=== PATIENT | female | born 1980 | race Caucasian/White ===

== ENCOUNTER 2017-04-04 06:32 | Emergency (ER) | payer MEDICAID ==
[2017-04-04 06:40] VITALS: BP 122/94; PULSE 106; RESP 16; TEMP 99.5; O2SAT 94
--- NOTE | 2017-04-04 07:00 | EDPHY ---
H & P Stated Complaint: ST, congestion, runny nose, swollen tongue 24hours HPI/ROS: HPI CHIEF COMPLAINT: Sore throat, sinus congestion HISTORY OF PRESENT ILLNESS: This patient is a very pleasant 37-year-old female , presents emergency room with sinus congestion. Patient reports that she has been sick for 24 hours. She has sinus pain anterior maxillary, nasal congestion , sore throat. No fever. Denies any headache or stiff neck. Denies meningeal signs. Past Medical History: No significant medical history except for ankylosing spondylitis Past Surgical History: Denies recent surgery Social History: Denies daily use of drugs alcohol tobacco products Family History: Noncontributory ROS REVIEW OF SYSTEMS: A comprehensive 10 point review of systems is otherwise negative aside from elements mentioned in the history of present illness. Exam Constitutional appears well nontoxic triage nursing summary reviewed, vital signs reviewed, awake/alert. Eyes normal conjunctivae and sclera, EOMI, PERRLA. HENT tender palpation over the maxillary sinuses. normal inspection, atraumatic , moist mucus membranes, no epistaxis, neck supple/ no meningismus, no raccoon eyes. Respiratory clear to auscultation bilaterally, normal breath sounds, no respiratory distress, no wheezing. Cardiovascular rate normal, regular rhythm, no murmur, no edema, distal pulses normal. Gastrointestinal soft, non-tender, no rebound, no guarding, normal bowel sounds, no distension, no pulsatile mass. Genitourinary no CVA tenderness. Musculoskeletal no midline vertebral tenderness, full range of motion, no calf swelling, no tenderness of extremities, no meningismus, good pulses, neurovascularly intact. Skin pink, warm, & dry, no rash, skin atraumatic. Neurologic awake, alert and oriented x 3, AAOx3, moves all 4 extremities equally, motor intact, sensory intact, CN II-XII intact, normal cerebellar, normal vision, normal speech. Psychiatric normal mood/affect. Heme/Lymph/Immune no lymphadenopathy. Differential Diagnosis: Includes but is not limited to in a particular order, viral syndrome, acute sinusitis, upper respiratory tract infection, strep pharyngitis. Medical Decision Making: Rapid strep. Negative. This patient well nontoxic. Clinically I do feel that she acute sinusitis. Will treat with azithromycin, ibuprofen, Mucinex. Understands drink lots of fluids. Understands return cautions. She understands return emergency room if she develops worsening pain , high fever, vomiting questions or concerns. Source: Patient - Personal History LMP (Females 10-55): 15-21 Days Ago Current Tetanus/Diphtheria Vaccine: Unsure Current Tetanus Diphtheria and Acellular Pertussis (TDAP): Unsure - Medical/Surgical History Hx Asthma: Yes Hx Chronic Respiratory Disease: No Hx Diabetes: No Hx Cardiac Disease: No Hx Renal Disease: No Hx Cirrhosis: No Hx Alcoholism: No Hx HIV/AIDS: No Hx Splenectomy or Spleen Trauma: No Other PMH: akylosing spondylitis, bresast implants removed, tonsillectomy. hypothyroid, asthma, PNA, bronchitis, cholitis, celiac dz, GERD. - Social History Smoking Status: Never smoked Constitutional: Initial Vital Signs Temperature (C) 37.5 C 04/04/17 06:35 Heart Rate 106 H 04/04/17 06:35 Respiratory Rate 16 04/04/17 06:35 Blood Pressure 122/94 H 04/04/17 06:35 O2 Sat (%) 94 04/04/17 06:35 O2 Delivery Mode Room Air Allergies/Adverse Reactions: ciprofloxacin [From Cipro] Allergy (Intermediate, Verified 04/04/17 06:41) Rash doxycycline Allergy (Intermediate, Verified 04/04/17 06:41) Rash gluten Allergy (Intermediate, Verified 04/04/17 06:41) Abdominal Cramping latex Allergy (Intermediate, Verified 04/04/17 06:41) Rash metoclopramide [From Reglan] Allergy (Intermediate, Verified 04/04/17 06:41) Anxiety sulfamethoxazole [From Bactrim] Allergy (Intermediate, Verified 04/04/17 06:41) Rash trimethoprim [From Bactrim] Allergy (Intermediate, Verified 04/04/17 06:41) Rash Home Medications: Medication Instructions Recorded AZITHROMYCIN [Z-PACK] 250 mg PO DAILY #6 tab 04/04/17 Ibuprofen [Motrin (*)] 800 mg PO Q6-8PRN #10 tab 04/04/17 Nature-Throid 04/04/17 Topamax 04/04/17 guaiFENesin [Guaifenesin ER] 600 mg PO BID #14 tab.er.12h 04/04/17 Medical Decision Making - Data Points Laboratory Results: 04/04/17 04/04/17 Unknown 06:42 Group A Strep Screen NEGATIVE (NEGATIVE) Group A Strep DNA Pending Departure - Departure Disposition: Home, Routine, Self-Care Clinical Impression: Sinusitis Qualifiers: Sinusitis location: frontal Chronicity: acute Recurrence: non-recurrent Qualified Code(s): J01.10 - Acute frontal sinusitis, unspecified Instructions: Sinusitis (ED) Additional Instructions: 1. Make sure to drink lots of fluids stay well-hydrated. 2. Take antibiotics as prescribed. 3. Return if you feel worse includes high fever, vomiting or any complaints. Referrals: NONE *PRIMARY CARE P,. [Primary Care Provider] - As per Instructions Prescriptions: AZITHROMYCIN [Z-PACK] 250 mg PO DAILY #6 tab guaiFENesin [Guaifenesin ER] 600 mg PO BID #14 tab.er.12h Ibuprofen [Motrin (*)] 800 mg PO Q6-8PRN #10 tab
== END 2017-04-04 07:16 | disposition home or self-care (01) ==
DX: J01.10 Acute frontal sinusitis, unspecified (principal); J45.909 Unspecified asthma, uncomplicated; Z91.040 Latex allergy status

== ENCOUNTER 2017-04-06 19:59 | Emergency (ER) | payer MEDICAID ==
[2017-04-06 20:04] VITALS: BP 135/95; PULSE 113; RESP 18; TEMP 99.3; O2SAT 97
--- NOTE | 2017-04-06 20:14 | EDPHY ---
H & P Time Seen by Provider: 04/06/17 20:07 HPI/ROS: HPI Cough. 37-year-old female by private vehicle. This patient was seen in our emergency department 2 days ago. She has had nasal congestion, sinus pressure, sore throat and cough since Wednesday. She was diagnosed with sinusitis and bronchitis when she was seen in the emergency department a couple of days ago. She was prescribed azithromycin and guaifenesin. She returns to the emergency department complaining of a continued cough and more pain in her throat when she coughs secondary to rawness from the coughing. She describes the cough is dry and hacking and nonproductive. She has associated chest tightness with it. She also reports subjective fevers. ROS: Constitutional: As above, no chills. No weakness. Eyes: No discharge. No changes in vision. ENT: As above Respiratory: As above. Cardiac: No chest pain, no palpitations. Gastrointestinal: No abdominal pain, no vomiting, no diarrhea. Genitourinary: No hematuria. No dysuria or increased frequency with urination. Musculoskeletal: No back pain. No neck pain. No myalgias or arthralgias. Skin: No rashes. Neurological: No headache. No focal weakness or altered sensation. Past medical history: Ankylosing spondylitis, breast implants removed, tonsillectomy, hypothyroidism, asthma, bronchitis, celiac disease, colitis. Social history: Nonsmoker. No alcohol. With a friend. Physical Exam: General Appearance: Alert, intermittent dry hacking cough. This patient is responding to questions appropriately and in full sentences. This patient appears well-hydrated and well-nourished. Eyes: Pupils equal and round no pallor or injection. No lid edema, erythema or injection. ENT, Mouth: Mucous membranes are moist. The pharyngeal tissues are unremarkable. No edema or swelling. No asymmetry suggestive of abscess. No erythema or exudates. Respiratory: There are no retractions, lungs are clear to auscultation with good air movement bilaterally. No tachypnea. Cardiovascular: Regular rate and rhythm. Mild tachycardia. No murmur appreciated. Neurological: Motor sensory function is grossly intact. Cranial nerves are normal. Gait is normal. Skin: Warm and dry, no rashes. Musculoskeletal: Neck is supple and nontender. Extremities are symmetrical. All joints range without pain or impingement. Psychiatric: No agitation. No depression. Database: EKG: Imaging: Chest x-ray PA and lateral; the cardiac mediastinal silhouette is unremarkable. Mild bronchitis. No evidence of infiltrate or pneumothorax. No other acute cardiopulmonary disease process noted. Interpreted by me. Procedures: Emergency department course: Vital signs reviewed. Patient was given 2 [place] tablets, 600 mg of ibuprofen, 10 mg of oral Decadron, Tessalon Perle and a DuoNeb. 9:14 p.m., patient re-evaluated. Resting comfortably at this time. She states that she feels better. Less cough. No chest tightness. She feels comfortable going home and I feel she is safe for discharge. Plan will be to send her home with a albuterol inhaler as well as a prescription for Tessalon Perle and some Hycodan cough syrup. She feels comfortable with this plan. Return to emergency department precautions reviewed with her. All of her questions were answered. She was discharged in good condition. Differential Diagnosis: The differential diagnosis on this patient includes but is not limited to viral upper respiratory infection, bronchitis. Reactive airway disease, asthma, pneumonia unlikely. This represents a partial list of diagnoses considered. These considerations are based on history, physical exam, past history, reassessment and diagnostic testing. Smoking Status: Never smoked Constitutional: Initial Vital Signs Temperature (C) 37.4 C 04/06/17 20:02 Heart Rate 113 H 04/06/17 20:02 Respiratory Rate 18 04/06/17 20:02 Blood Pressure 135/95 H 04/06/17 20:02 O2 Sat (%) 97 04/06/17 20:02 O2 Delivery Mode Room Air Allergies/Adverse Reactions: ciprofloxacin [From Cipro] Allergy (Intermediate, Verified 04/06/17 20:05) Rash doxycycline Allergy (Intermediate, Verified 04/04/17 06:41) Rash gluten Allergy (Intermediate, Verified 04/06/17 20:05) Abdominal Cramping latex Allergy (Intermediate, Verified 04/06/17 20:05) Rash metoclopramide [From Reglan] Allergy (Intermediate, Verified 04/06/17 20:05) Anxiety sulfamethoxazole [From Bactrim] Allergy (Intermediate, Verified 04/06/17 20:05) Rash trimethoprim [From Bactrim] Allergy (Intermediate, Verified 04/06/17 20:05) Rash Home Medications: Medication Instructions Recorded AZITHROMYCIN [Z-PACK] 250 mg PO DAILY #6 tab 04/04/17 Ibuprofen [Motrin (*)] 800 mg PO Q6-8PRN #10 tab 04/04/17 Nature-Throid 04/04/17 Topamax 04/04/17 guaiFENesin [Guaifenesin ER] 600 mg PO BID #14 tab.er.12h 04/04/17 Benzonatate [Tessalon Pearles] 100 mg PO TID #12 cap 04/06/17 Medical Decision Making - Data Points Medications Given: Discontinued Medications Hydrocodone Bitart/Acetaminophen ([place] 5/325) 2 tab PO EDNOW ONE Stop: 04/06/17 20:27 Last Admin: 04/06/17 20:40 Dose: 2 tab Albuterol/Ipratropium (Duoneb) 3 ml IH EDNOW ONE Stop: 04/06/17 20:27 Last Admin: 04/06/17 20:39 Dose: 3 ml Benzonatate (Tessalon Pearles) 200 mg PO EDNOW ONE Stop: 04/06/17 20:27 Last Admin: 04/06/17 20:39 Dose: 200 mg Dexamethasone (Decadron) 12 mg PO EDNOW ONE Stop: 04/06/17 20:28 Last Admin: 04/06/17 20:39 Dose: 12 mg Ibuprofen (Motrin) 600 mg PO EDNOW ONE Stop: 04/06/17 20:28 Last Admin: 04/06/17 20:40 Dose: Not Given Departure - Departure Disposition: Home, Routine, Self-Care Clinical Impression: Bronchitis Condition: Good Instructions: Acute Bronchitis (ED) Additional Instructions: Read and follow provided instructions. Follow-up with your primary care physician in 1-2 days for re-evaluation as discussed. Ibuprofen dosin mg every 6 hours with meals for the next 3 days only. Albuterol meter dose inhaler: 1-2 puffs every 2-4 hours as needed for cough and shortness of breath. Return to the emergency department for worsening cough, difficulty breathing or other serious concerns. Keep well hydrated, get lots of rest. Referrals: NONE *PRIMARY CARE P,. [Primary Care Provider] - As per Instructions Prescriptions: Benzonatate [Tessalon Pearles] 100 mg PO TID #12 cap
[2017-04-06] MEDS ORDERED: HYDROCODONE/APAP 5/325 TAB PO ONE (20:26)
[2017-04-06] MEDS ORDERED: IPRATROPIUM/ALBUTEROL 3 ML DEYVIAL IH ONE (20:26)
[2017-04-06] MEDS ORDERED: BENZONATATE 100 MG CAP PO ONE (20:26)
[2017-04-06] MEDS ORDERED: IBUPROFEN 600 MG TAB PO ONE (20:27)
[2017-04-06] MEDS ORDERED: DEXAMETHASONE 4 MG TAB PO ONE (20:27)
[2017-04-06] MEDS ORDERED: ALBUTEROL INH PREPACK MDI TAKEHOME ONE (21:16)
== END 2017-04-06 21:28 | disposition home or self-care (01) ==
DX: J40 Bronchitis, not specified as acute or chronic (principal); Z91.040 Latex allergy status

== ENCOUNTER 2017-06-09 12:21 | Emergency (ER) | payer MEDICAID ==
[2017-06-09 12:41] VITALS: PULSE 81; TEMP 98.1
--- NOTE | 2017-06-09 12:42 | EDPHY ---
H & P Stated Complaint: HIT HEAD, CUMMINGS, CANT FOCUS, NAUSEA Time Seen by Provider: 06/09/17 12:41 HPI/ROS: CHIEF COMPLAINT: Post concussive symptoms HISTORY OF PRESENT ILLNESS: The patient presents the ED with complaints of post concussive symptoms including nausea and difficulty concentrating. The patient struck her head on the edge of a car door several days ago. She did not lose consciousness. She is not anticoagulated. She denies any complaints of acute neck pain. The patient does have a history of chronic trigeminal neuralgia. She has a history of prior head injury. The patient denies any neck pain, acute numbness, weakness or other concerns. REVIEW OF SYSTEMS: A comprehensive 10 point review of systems is otherwise negative aside from elements mentioned in the history of present illness. Source: Patient Exam Limitations: No limitations - Personal History Current Tetanus/Diphtheria Vaccine: Unsure - Medical/Surgical History Hx Asthma: Yes Hx Chronic Respiratory Disease: No Hx Diabetes: No Hx Cardiac Disease: No Hx Renal Disease: No Hx Cirrhosis: No Hx Alcoholism: No Hx HIV/AIDS: No Hx Splenectomy or Spleen Trauma: No Other PMH: akylosing spondylitis, bresast implants removed, tonsillectomy. hypothyroid, asthma, PNA, bronchitis, cholitis, celiac dz, GERD. - Social History Smoking Status: Never smoked - Physical Exam Exam: General Appearance: Alert, no distress Head: Atraumatic, no hematoma, laceration or ecchymosis appreciated Eyes: Pupils equal, round, reactive ENT, Mouth: No hemotympanum, no oral trauma Neck: Nontender, trachea midline Respiratory: No chest wall tender, subcutaneous air, lungs clear bilaterally Cardiovascular: Regular rate and rhythm Abdomen: Abdomen is soft and nontender, pelvis stable Skin: No lacerations, No abrasion Back: No midline T/L/S pain Extremities: Nontender, full range of motion Constitutional: Initial Vital Signs Temperature (C) 36.7 C 06/09/17 12:40 Heart Rate 81 06/09/17 12:40 Respiratory Rate 16 06/09/17 12:40 Blood Pressure 144/80 H 06/09/17 12:40 O2 Sat (%) 98 06/09/17 12:40 O2 Delivery Mode Room Air Allergies/Adverse Reactions: ciprofloxacin [From Cipro] Allergy (Intermediate, Verified 04/06/17 20:05) Rash doxycycline Allergy (Intermediate, Verified 04/04/17 06:41) Rash gluten Allergy (Intermediate, Verified 04/06/17 20:05) Abdominal Cramping latex Allergy (Intermediate, Verified 04/06/17 20:05) Rash metoclopramide [From Reglan] Allergy (Intermediate, Verified 04/06/17 20:05) Anxiety sulfamethoxazole [From Bactrim] Allergy (Intermediate, Verified 04/06/17 20:05) Rash trimethoprim [From Bactrim] Allergy (Intermediate, Verified 04/06/17 20:05) Rash Home Medications: Medication Instructions Recorded AZITHROMYCIN [Z-PACK] 250 mg PO DAILY #6 tab 04/04/17 Ibuprofen [Motrin (*)] 800 mg PO Q6-8PRN #10 tab 04/04/17 Nature-Throid 04/04/17 Topamax 04/04/17 guaiFENesin [Guaifenesin ER] 600 mg PO BID #14 tab.er.12h 04/04/17 Benzonatate [Tessalon Pearles] 100 mg PO TID #12 cap 04/06/17 Ondansetron Odt [Zofran Odt] 4 mg PO Q4PRN PRN #20 tab 06/09/17 Medical Decision Making ED Course/Re-evaluation: The patient presents to the ED with symptoms of a mild post concussive syndrome. She is noted to be neurologically intact. She is not anticoagulated. I have little suspicion for skull fracture or intracranial hemorrhage I do not feel that a CT scan of the brain is indicated. The patient will be given some Zofran for her nausea. He is advised to continue Tylenol and ibuprofen for pain management. She will be given a concussion care pamphlet and referred to our on-call concussion specialist for any persistent symptoms. She is instructed to return to the ED for acutely worsening headache, the development of numbness, weakness or other concerns. Differential Diagnosis: Differential diagnosis considered includes concussion, skull fracture, intracranial hemorrhage Departure - Departure Disposition: Home, Routine, Self-Care Clinical Impression: Concussion Condition: Good Instructions: Concussion (ED) Additional Instructions: 1. Zofran as needed for nausea 2. Take Ibuprofen or Motrin 600 mg by mouth three times a day. 3. Tylenol as needed for pain. 4. Return to the ED for markedly worsening headache, numbness, weakness or other concerns. 5. Please follow up with the concussion specialist you have been referred to for any symptoms which persists past 3-5 days. 6. Concussion care as directed in our concussion pamphlet. Referrals: Wendy Jensen MD [Medical Doctor] - As per Instructions
[2017-06-09] MEDS ORDERED: ONDANSETRON DISINTEGRATING 4 MG TAB PO ONE (12:55)
[2017-06-09 14:09] VITALS: BP 107/82; RESP 18; O2SAT 99
== END 2017-06-09 14:09 | disposition home or self-care (01) ==
DX: S06.0X0A Concussion without loss of consciousness, initial encounter (principal); J45.909 Unspecified asthma, uncomplicated; Z91.040 Latex allergy status; W22.8XXA Striking against or struck by other objects, initial encounter

== ENCOUNTER 2017-08-08 14:40 | Emergency (ER) | payer MEDICAID ==
[2017-08-08 14:55] VITALS: TEMP 98.4
--- NOTE | 2017-08-08 15:16 | EDPHY ---
H & P Time Seen by Provider: 08/08/17 14:57 HPI/ROS: Chief complaint. Migraine HPI. 37-year-old female presents emergency department with migraine headache that has now lasted 5 days. It is a typical headache and that it began typically with visual scotoma in some nausea. It is always left side which it is today. Typically her migraines last 2 days but this has continued. Some of the initial visual scotoma has continued. No recent head injury fever. No chest discomfort or trouble breathing in. No abdominal pain no nausea. No recent head injury. Patient was seen 06/09/2017 for post concussive syndrome. ROS Constitutional. no fever/chills, no weakness Eyes. Visual changes ENT. no sore throat, no nasal drainage Cardiovascular. no chest pain Respiratory. no shortness of breath, no cough Abdominal. no abdominal pain, no nausea/vomiting, no diarrhea . no problems urinating MS. no calf pain/swelling, no neck/back pain, no joint pain Skin. no rash Lymph. no swollen glands Neuro. Headache Past Medical/Surgical History: Ankylosing spondylitis, breast implants removed, tonsillectomy, hypothyroid, as , pneumonia, bronchitis, colitis, celiac disease, GERD, migraines Social History: Single, nonsmoker, no alcohol Smoking Status: Never smoked Physical Exam: General Appearance: Alert well-developed female moderate distress vital signs are stable Eyes: Pupils equal and round no pallor or injection. ENT, Mouth: Mucous membranes are moist. Respiratory: There are no retractions, lungs are clear to auscultation. Cardiovascular: Regular rate and rhythm. Gastrointestinal: Abdomen is soft and nontender, no masses, bowel sounds normal. Neurological: Awake and alert, sensory and motor exams grossly normal. Skin: Warm and dry, no rashes. Musculoskeletal: Neck is supple nontender. Extremities symmetrical, full range of motion. Psychiatric: Patient is oriented X 3, there is no agitation. Constitutional: Initial Vital Signs Temperature (C) 36.9 C 08/08/17 14:45 Heart Rate 104 H 08/08/17 14:45 Respiratory Rate 16 08/08/17 14:45 Blood Pressure 137/90 H 08/08/17 14:45 O2 Sat (%) 96 08/08/17 14:45 O2 Delivery Mode Room Air Allergies/Adverse Reactions: ciprofloxacin [From Cipro] Allergy (Intermediate, Verified 04/06/17 20:05) Rash doxycycline Allergy (Intermediate, Verified 04/04/17 06:41) Rash gluten Allergy (Intermediate, Verified 04/06/17 20:05) Abdominal Cramping latex Allergy (Intermediate, Verified 04/06/17 20:05) Rash metoclopramide [From Reglan] Allergy (Intermediate, Verified 04/06/17 20:05) Anxiety sulfamethoxazole [From Bactrim] Allergy (Intermediate, Verified 04/06/17 20:05) Rash trimethoprim [From Bactrim] Allergy (Intermediate, Verified 04/06/17 20:05) Rash [id number] Antimigraine Agents Allergy (Verified 08/08/17 14:51) Home Medications: Medication Instructions Recorded Ibuprofen [Motrin (*)] 800 mg PO Q6-8PRN #10 tab 04/04/17 Nature-Throid 04/04/17 Topamax 04/04/17 Wellbutrin Xl 08/08/17 Medical Decision Making Procedures: IV normal saline. Toradol, Benadryl, Decadron IV. Patient notes Reglan as an allergy. Haldol 5 mg IV ED Course/Re-evaluation: Patient got quite anxious after being given Haldol despite already having been given Benadryl. She was given more Benadryl and 0.5 mg of Ativan and feeling better Re-evaluation 5:35 p.m.. Patient notes that the anxiety has resolved and her headache is much improved. 7:00 p.m. patient is improved still with some left-sided headache. Neurologically intact. 10 mg propofol IV 830 re-evaluation. No headache whatsoever. Neurologically intact. Feels well to go home. Differential Diagnosis: This is typical migraine for the patient however it has lasted instead of the usual 2 days to 5 days. After management with medication the patient is now pain-free and neurologically intact. I have considered intracranial bleeding, meningitis, TIA. - Data Points Medications Given: Discontinued Medications Dexamethasone (Decadron Injection) 10 mg IVP EDNOW ONE Stop: 08/08/17 15:27 Last Admin: 08/08/17 15:43 Dose: 10 mg Diphenhydramine HCl (Benadryl Injection) 12.5 mg IVP EDNOW ONE Stop: 08/08/17 15:27 Last Admin: 08/08/17 15:43 Dose: 12.5 mg Diphenhydramine HCl (Benadryl Injection) 25 mg IVP EDNOW ONE Stop: 08/08/17 16:25 Last Admin: 08/08/17 16:27 Dose: 25 mg Haloperidol Lactate (Haldol Injection) 5 mg IVP EDNOW ONE Stop: 08/08/17 16:09 Last Admin: 08/08/17 16:11 Dose: 5 mg Sodium Chloride (Ns) 1,000 mls @ 0 mls/hr IV ONCE ONE; Wide Open PRN Reason: Protocol Stop: 08/08/17 15:27 Last Admin: 08/08/17 15:43 Dose: 1,000 mls Ketorolac Tromethamine (Toradol) 30 mg IVP EDNOW ONE Stop: 08/08/17 15:27 Last Admin: 08/08/17 15:42 Dose: 30 mg Lorazepam (Ativan Injection) 0.5 mg IVP EDNOW ONE Stop: 08/08/17 16:26 Last Admin: 08/08/17 16:27 Dose: 0.5 mg Propofol (Diprivan) 10 mg IVP EDNOW ONE Stop: 08/08/17 19:17 Last Admin: 08/08/17 19:32 Dose: 10 mg Departure - Departure Disposition: Home, Routine, Self-Care Clinical Impression: Migraine headache Qualifiers: Migraine type: unspecified Status migrainosus presence: without status migrainosus Intractability: not intractable Qualified Code(s): G43.909 - Migraine, unspecified, not intractable, without status migrainosus Condition: Good Instructions: Migraine Headache (ED) Additional Instructions: Continue regular medications. Return for worsening symptoms. Follow up with your regular healthcare provider in the next 1-2 days for continuing symptoms. Referrals: Rosmery Grayson MD [Primary Care Provider] - As per Instructions
[2017-08-08] MEDS ORDERED: KETOROLAC 30 MG/1 ML SDV IVP ONE (15:26)
[2017-08-08] MEDS ORDERED: DEXAMETHASONE 10 MG/ML VIAL IVP ONE (15:26)
[2017-08-08] MEDS ORDERED: NS 1,000 ML IV ONE (15:26)
[2017-08-08] MEDS ORDERED: HALOPERIDOL LACT 5 MG/ML INJ IVP ONE (16:08)
[2017-08-08] MEDS ORDERED: HALOPERIDOL LACT 5 MG/ML INJ ONE (16:09)
[2017-08-08] MEDS ORDERED: LORazepam 2 MG/ML INJ IVP ONE (16:25)
[2017-08-08] MEDS ORDERED: LORazepam 2 MG/ML INJ ONE (16:25)
[2017-08-08 19:10] VITALS: RESP 16
[2017-08-08] MEDS ORDERED: PROPOFOL 200 MG/20 ML VIAL IVP ONE (19:16)
[2017-08-08 20:09] VITALS: O2SAT 95
[2017-08-08 20:49] VITALS: BP 97/55; PULSE 78
== END 2017-08-08 20:55 | disposition home or self-care (01) ==
DX: G43.909 Migraine, unspecified, not intractable, without status migrainosus (principal); E86.9 Volume depletion, unspecified; Z91.040 Latex allergy status
CPT/HCPCS: 96374; J1100; J1200; J1630; J1885; J2060; J2704

== ENCOUNTER 2018-03-02 06:14 | Emergency (ER) | payer MEDICAID ==
[2018-03-02] MEDS ORDERED: NS 1,000 ML IV ONE (06:41)
[2018-03-02 07:08] LABS: PLATELET COUNT 282 10^3/uL (150-400)
[2018-03-02] MEDS ORDERED: LIDOCAINE 2% VISCOUS 15 ML UDCUP PO ONE (07:23)
[2018-03-02] MEDS ORDERED: HYOSCYAMINE SULFATE 0.125 MG TAB PO ONE (07:23)
[2018-03-02] MEDS ORDERED: MAG HYDROX/AL HYDROX/SIMETH 30 ML UDCUP PO ONE (07:23)
[2018-03-02] MEDS ORDERED: KETAMINE 200 MG/20 ML VIAL IVP ONE (07:25)
--- NOTE | 2018-03-02 07:31 | EDPHY ---
H & P Stated Complaint: abd pain since yesterday Time Seen by Provider: 03/02/18 07:05 HPI/ROS: CHIEF COMPLAINT: Abdominal pain HISTORY OF PRESENT ILLNESS: 37-year-old female presents with abdominal pain. Onset of upper abdominal pain last evening. The pain is moderate to severe and waxes and wanes. Unable to sleep because of pain. Omeprazole without relief. Feels the urge to have a bowel movement. No other associated symptoms. History of peptic ulcer disease, pain seems to be in similar location, but different quality of pain. REVIEW OF SYSTEMS: complete 10 point ROS reviewed and is negative except for the noted elements in the HPI - Personal History LMP (Females 10-55): 15-21 Days Ago Current Tetanus/Diphtheria Vaccine: Unsure Current Tetanus Diphtheria and Acellular Pertussis (TDAP): Unsure - Medical/Surgical History Hx Asthma: Yes Hx Chronic Respiratory Disease: No Hx Diabetes: No Hx Cardiac Disease: No Hx Renal Disease: No Hx Cirrhosis: No Hx Alcoholism: No Hx HIV/AIDS: No Hx Splenectomy or Spleen Trauma: No Other PMH: akylosing spondylitis, breast implants removed, tonsillectomy. hypothyroid, asthma, PNA, bronchitis, cholitis, celiac dz, GERD, migranes, TBI 05/2017 - Social History Smoking Status: Never smoked Alcohol Use: Sober - Physical Exam Exam: General Appearance: Alert, pleasant, appears in pain Eyes: Pupils equal and round, no conjunctival pallor or injection ENT, Mouth: Mucous membranes moist Neck: Normal inspection Respiratory: Lungs are clear to auscultation Cardiovascular: Regular rate and rhythm Gastrointestinal: Abdomen is soft, diffuse tenderness especially in the left lower quadrant Neurological: A&O, nonfocal, normal gait Skin: Warm and dry, no rash Extremities: Nontender, no pedal edema Psychiatric: Mood and affect normal Constitutional: Initial Vital Signs Temperature (C) 37.0 C 03/02/18 06:25 Heart Rate 95 03/02/18 06:25 Respiratory Rate 16 03/02/18 06:25 Blood Pressure 112/93 H 03/02/18 06:25 O2 Sat (%) 97 03/02/18 06:25 O2 Delivery Mode Room Air Allergies/Adverse Reactions: ciprofloxacin [From Cipro] Allergy (Verified 03/02/18 06:28) Rash doxycycline Allergy (Verified 03/02/18 06:28) Rash gluten Allergy (Verified 03/02/18 06:28) Abdominal Cramping latex Allergy (Verified 03/02/18 06:28) Rash metoclopramide [From Reglan] Allergy (Verified 03/02/18 06:28) Anxiety sulfamethoxazole [From Bactrim] Allergy (Verified 03/02/18 06:28) Rash trimethoprim [From Bactrim] Allergy (Verified 03/02/18 06:28) Rash [id number] Antimigraine Agents Allergy (Verified 03/02/18 06:28) elevates bp and vomitting Home Medications: Medication Instructions Recorded Nature-Throid 04/04/17 Topamax 04/04/17 Wellbutrin Xl 08/08/17 Medical Decision Making - Diagnostics Imaging Results: Imaging Impressions Abdomen CT 03/02/18 07:25 Impression: 1. Constipation. 2. 2.5 cm left Bartholin's cyst. 3. Additional findings as above. Findings discussed with Tia Rosen on 03/02/2018 at 8:31 a.m. Imaging: Discussed imaging studies w/ call center associate Radiologist, I viewed and interpreted images myself ED Course/Re-evaluation: This patient presents with generalized abdominal pain and localized left lower quadrant tenderness. Concern for diverticulitis. CT scan of the abdomen pelvis obtained and reveals constipation, no evidence of diverticulitis or other serious etiology of pain. Patient also states she felt better after the GI cocktail. Pain has lessened substantially after GI cocktail and IV ketamine. Abdominal exam remains benign. Fleet's enema given for constipation. Abdominal pain precautions given. Differential Diagnosis: Differential diagnosis includes though it is not limited to appendicitis, cholecystitis, diverticulitis, pyelonephritis, bowel perforation, small bowel obstruction. - Data Points Laboratory Results: Laboratory Results 03/02/18 07:00 03/02/18 07:00 03/02/18 03/02/18 03/02/18 07:00 07:00 07:00 WBC 12.76 10^3/uL H 10^3/uL (3.80-9.50) RBC 5.10 10^6/uL 10^6/uL (4.18-5.33) Hgb 14.0 g/dL g/dL (12.6-16.3) Hct 40.2 % % (38.0-47.0) MCV 78.8 fL L fL (81.5-99.8) MCH 27.5 pg L pg (27.9-34.1) MCHC 34.8 g/dL g/dL (32.4-36.7) RDW 12.9 % % (11.5-15.2) Plt Count 282 10^3/uL 10^3/uL (150-400) MPV 11.2 fL fL (8.7-11.7) Neut % (Auto) 69.5 % % (39.3-74.2) Lymph % (Auto) 21.6 % % (15.0-45.0) [place] % (Auto) 7.8 % % (4.5-13.0) Eos % (Auto) 0.4 % L % (0.6-7.6) Baso % (Auto) 0.3 % % (0.3-1.7) Nucleat RBC Rel Count 0.0 % % (0.0-0.2) Absolute Neuts (auto) 8.88 10^3/uL H 10^3/uL (1.70-6.50) Absolute Lymphs (auto) 2.75 10^3/uL 10^3/uL (1.00-3.00) Absolute Monos (auto) 0.99 10^3/uL H 10^3/uL (0.30-0.80) Absolute Eos (auto) 0.05 10^3/uL 10^3/uL (0.03-0.40) Absolute Basos (auto) 0.04 10^3/uL 10^3/uL (0.02-0.10) Absolute Nucleated RBC 0.00 10^3/uL 10^3/uL (0-0.01) Immature Gran % 0.4 % % (0.0-1.1) Immature Gran # 0.05 10^3/uL 10^3/uL (0.00-0.10) Sodium 138 mEq/L mEq/L (135-145) Potassium 3.7 mEq/L mEq/L (3.3-5.0) Chloride 110 mEq/L mEq/L (97-110) Carbon Dioxide 19 mEq/l L mEq/l (22-31) Anion Gap 9 mEq/L mEq/L (8-16) BUN 11 mg/dL mg/dL (7-23) Creatinine 0.7 mg/dL mg/dL (0.6-1.0) Estimated GFR > 60 Glucose 113 mg/dL H mg/dL (70-100) Calcium 9.4 mg/dL mg/dL (8.5-10.4) Total Bilirubin 0.5 mg/dL mg/dL (0.1-1.4) Conjugated Bilirubin 0.1 mg/dL mg/dL (0.0-0.5) Unconjugated Bilirubin 0.4 mg/dL mg/dL (0.0-1.1) AST 16 IU/L IU/L (14-46) ALT 24 IU/L IU/L (9-52) Alkaline Phosphatase 91 IU/L IU/L (38-126) Total Protein 6.3 g/dL g/dL (6.3-8.2) Albumin 3.7 g/dL g/dL (3.5-5.0) Lipase 115 IU/L IU/L (23-300) Beta HCG, Qual NEGATIVE Medications Given: Discontinued Medications Al Hydroxide/Mg Hydroxide (Maalox Susp) 30 ml PO ONCE ONE Stop: 03/02/18 07:24 Last Admin: 03/02/18 08:08 Dose: 30 ml Hyoscyamine Sulfate (Levsin, Hyomax-Sl) 0.25 mg PO ONCE ONE Stop: 03/02/18 07:24 Last Admin: 03/02/18 08:08 Dose: 0.25 mg Sodium Chloride (Ns) 1,000 mls @ 0 mls/hr IV EDNOW ONE; Wide Open PRN Reason: Protocol Stop: 03/02/18 06:42 Last Admin: 03/02/18 06:58 Dose: 1,000 mls Ketamine HCl (Ketamine) 12 mg IVP EDNOW ONE Stop: 03/02/18 07:26 Last Admin: 03/02/18 08:06 Dose: 12 mg Lidocaine (Lidocaine 2% Viscous) 15 ml PO ONCE ONE Stop: 03/02/18 07:24 Last Admin: 03/02/18 08:08 Dose: 15 ml Departure - Departure Disposition: Home, Routine, Self-Care Clinical Impression: Abdominal pain Qualifiers: Abdominal location: generalized Qualified Code(s): R10.84 - Generalized abdominal pain Condition: Good Instructions: Acute Abdominal Pain (ED), Fleet Enema (ED) Additional Instructions: Take Maalox 30 min before meals and at bedtime. Take Prilosec over the counter. Avoid fatty and spicy foods. Sometimes we are unable to diagnose an obvious cause of abdominal pain in the Emergency Department. Based upon our evaluation today, we see no obvious explanation for your pain. Because more serious conditions can be difficult to diagnose early in the course of their presentation, we ask that you return to the Emergency Department in 12-24 hours for a recheck if you are still having pain. This is necessary to exclude the development of a more serious condition such as appendicitis or other intra-abdominal emergency. In the event your pain markedly increases before that time or you develop intractable vomiting or fever return to the Emergency Department immediately. Referrals: Corina Suresh CNP [Primary Care Provider] - As per Instructions
[2018-03-02] MEDS ORDERED: IOPAMIDOL (ISOVUE-300) 100 ML BTL ONE (07:38)
[2018-03-02 09:41] VITALS: BP 104/77
== END 2018-03-02 09:52 | disposition home or self-care (01) ==
DX: R10.84 Generalized abdominal pain (principal); E86.9 Volume depletion, unspecified
CPT/HCPCS: 96374; Q9967

== ENCOUNTER → 2018-07-13 | Outpatient (CLI) | payer MEDICAID ==
[~2018-07-13] MED LIST: GADOBUTROL 10 ML VIAL IVP ONE
== END ==
LOC: FIMAGING 07:43
PROVIDERS: ATTEND Physician Assistant Medical
DX: G43.909 Migraine, unspecified, not intractable, without status migrainosus (principal); R25.8 Other abnormal involuntary movements
CPT/HCPCS: A9585

== ENCOUNTER → 2018-07-26 | Outpatient (CLI) | payer MEDICAID ==
--- NOTE | 2018-07-26 21:12 | CPEEG ---
[f rep st] ELECTROENCEPHALOGRAM FOUR HOUR VIDEO ELECTROENCEPHALOGRAM DATE OF STUDY: 07/26/2018 DATE OF INTERPRETATION: 07/26/2018. INTERPRETATION: This 4-hour video EEG recording is normal. There were no potentially epileptogenic abnormalities present during the awake or sleep recordings. During the EEG monitoring session, the germaine cheung did not have any clinical events. REPORT: This 4-hour video EEG recording contains 10 Hz alpha activity over the posterior head region s. There was no abnormal activation at rest, during photic stimulation or hyperventilation. The teena ieben became drowsy and fell into sustained sleep during the recording. There was no abnormal activat ion during drowsiness, sleep, or during times of arousal. The patient did not have any clinical even ts during the video EEG monitoring session. /[id number]/MODL
== END ==
LOC: FCPNEURO 07:54
PROVIDERS: ATTEND Psychiatry & Neurology Neurology
DX: R25.8 Other abnormal involuntary movements (principal); R41.0 Disorientation, unspecified